=== PATIENT | female | born 1955 | race Caucasian/White ===

== ENCOUNTER → 2016-09-19 | Outpatient (CLI) | payer OTHER | LOC: FIMAGING 08:19 | DX: Z12.31 Encounter for screening mammogram for malignant neoplasm of breast (principal) | CPT/HCPCS: G0202 ==

== ENCOUNTER → 2016-09-30 | Outpatient (CLI) | payer OTHER | LOC: FIMAGING 14:10 | PROVIDERS: ATTEND Family Medicine | DX: Z12.39 Encounter for other screening for malignant neoplasm of breast (principal); N63 Unspecified lump in breast | CPT/HCPCS: G0206 ==

== ENCOUNTER → 2017-09-20 | Outpatient (CLI) | payer OTHER | LOC: FIMAGING 15:36 | PROVIDERS: ATTEND Family Medicine | DX: Z12.31 Encounter for screening mammogram for malignant neoplasm of breast (principal) ==

== ENCOUNTER 2017-10-18 09:02 | Emergency (ER) | payer OTHER ==
[2017-10-18] MEDS ORDERED: KETOROLAC 30 MG/1 ML SDV IM ONE (09:40)
--- NOTE | 2017-10-18 09:43 | EDPHY ---
H & P Stated Complaint: severe headache,photophobia Time Seen by Provider: 10/18/17 09:26 HPI/ROS: CHIEF COMPLAINT: Headache HISTORY OF PRESENT ILLNESS: The patient is a 62-year-old female who was diagnosed 4 days ago with strep throat on a positive swab. She was flu negative. She began taking amoxicillin 875 twice daily. She states that she felt much better 2 days ago but then yesterday and today has had a headache. No fever. No neck stiffness. She was concerned because she had a friend lose a child several years ago for meningitis. She also has a history of migraines remotely but has not had 1 in several years. She has photophobia but no vision changes. No weakness or numbness. REVIEW OF SYSTEMS: Constitutional: denies: chills, fever, recent illness, recent injury EENTM: denies: blurred vision, double vision, nose congestion Respiratory: denies: cough, shortness of breath Cardiac: denies: chest pain, irregular heart rate, lightheadedness, palpitations Gastrointestinal/Abdominal: denies: abdominal pain, diarrhea, nausea, vomiting, blood streaked stools Genitourinary: denies: dysuria, frequency, hematuria, pain Musculoskeletal: denies: joint pain, muscle pain Skin: denies: lesions, rash, jaundice, bruising Neurological: See HPI denies: numbness, paresthesia, tingling, dizziness, weakness Hematologic/Lymphatic: denies: blood clots, easy bleeding, easy bruising Immunologic/allergic: denies: HIV/AIDS, transplant EXAM: GENERAL: Well-appearing, well-nourished and in no acute distress. HEAD: Atraumatic, normocephalic. EYES: Pupils equal round and reactive to light, extraocular movements intact, sclera anicteric, conjunctiva are normal. ENT: TMs normal, nares patent, oropharynx clear without exudates. Moist mucous membranes. NECK: Normal range of motion, supple without lymphadenopathy or JVD. No meningismus LUNGS: Breath sounds clear to auscultation bilaterally and equal. No wheezes rales or rhonchi. HEART: Regular rate and rhythm without murmurs, rubs or gallops. ABDOMEN: Soft, nontender, normoactive bowel sounds. No guarding, no rebound. No masses appreciated. BACK: No CVA tenderness, no spinal tenderness, step-offs or deformities EXTREMITIES: Normal range of motion, no pitting or edema. No clubbing or cyanosis. NEUROLOGICAL: Cranial nerves II through XII grossly intact. Normal speech, normal gait. 5/5 strength, normal movement in all extremities, normal sensation PSYCH: Normal mood, normal affect. SKIN: Warm, dry, normal turgor, no visible rashes or lesions. Source: Patient Exam Limitations: No limitations - Personal History Current Tetanus Diphtheria and Acellular Pertussis (TDAP): Yes - Medical/Surgical History Hx Asthma: No Hx Chronic Respiratory Disease: No Hx Diabetes: No Hx Cardiac Disease: No Hx Renal Disease: No Hx Cirrhosis: No Hx Alcoholism: No Hx HIV/AIDS: No Hx Splenectomy or Spleen Trauma: No Other PMH: strep throat diagnosed 10/14/2017,MITRIAL VALVE PROLAPSE: PRE-DIABETIC , PCOS, HYPOTHYROID, ORTHO SURGERY, HYSTERECTOMY,MRSA x5 in 2006,connective tissue disease - Family History Significant Family History: No pertinent family hx - Social History Smoking Status: Former smoker Alcohol Use: Sober Drug Use: None Constitutional: Initial Vital Signs Temperature (C) 36.9 C 10/18/17 09:19 Heart Rate 73 10/18/17 09:19 Respiratory Rate 16 10/18/17 09:19 Blood Pressure 167/109 H 10/18/17 09:19 O2 Sat (%) 95 10/18/17 09:19 O2 Delivery Mode Room Air Allergies/Adverse Reactions: azithromycin [From Zithromax] Allergy (Verified 10/18/17 09:18) codeine Allergy (Verified 10/18/17 09:18) opiates Allergy (Uncoded 10/18/17 09:18) Home Medications: Medication Instructions Recorded Synthroid 100 mcg (RX) 07/18/13 AMOXICILLIN 10/18/17 Medical Decision Making ED Course/Re-evaluation: We discussed meningitis as a possible source of her headache. She does not have a fever or neck stiffness. I did offer to do a lumbar puncture however she declined. Her throat is feeling much better and her lymphadenopathy is improved. Overall she felt reassured. I offered IV fluids and migraine medications but she declined. She will take a shot of Toradol. She would like to go home and sleep rest and hydrate. We discussed indications for returning. Differential Diagnosis: Partial list of the Differential diagnosis considered include but were not limited to; migraine, tension headache, anxiety, strep throat, and although unlikely based on the history and physical exam, I also considered meningitis, sepsis, abscess. I discussed these differential diagnoses and the plan with the patient as well as the usual and expected course. The patient understands that the diagnosis is provisional and that in medicine we are not always correct and that further workup is often warranted. Usual and customary warnings were given. All of the patient's questions were answered. The patient was instructed to return to the emergency department should the symptoms at all worsen or return, otherwise to followup with the physician as we discussed. - Data Points Medications Given: Discontinued Medications Ketorolac Tromethamine (Toradol) 30 mg IM EDNOW ONE Stop: 10/18/17 09:41 Last Admin: 10/18/17 09:47 Dose: 30 mg Departure - Departure Disposition: Home, Routine, Self-Care Clinical Impression: Headache, Strep throat Condition: Fair Instructions: Strep Throat (ED), Acute Headache (ED) Referrals: Maggie Seymour MD [Primary Care Provider] - 2-3 days, call for appt.
[2017-10-18 10:23] VITALS: BP 158/92
== END 2017-10-18 10:07 | disposition home or self-care (01) ==
LOC: CED 09:02
DX: J02.0 Streptococcal pharyngitis (principal); Z87.891 Personal history of nicotine dependence
CPT/HCPCS: J1885

== ENCOUNTER → 2018-09-21 | Outpatient (CLI) | payer OTHER | LOC: FIMAGING 08:08 | PROVIDERS: ATTEND Family Medicine | DX: Z12.31 Encounter for screening mammogram for malignant neoplasm of breast (principal) ==